=== PATIENT | male | born 1985 | race Caucasian/White ===

== ENCOUNTER → 2016-10-06 | Outpatient (CLI) | payer OTHER ==
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
== END | disposition home or self-care (01) ==
LOC: RAD 14:27
DX: H05.221 Edema of right orbit (principal); S02.81XA Fracture of other specified skull and facial bones, right side, initial encounter for closed fracture; X58.XXXA Exposure to other specified factors, initial encounter
CPT/HCPCS: 70486